=== PATIENT | female | born 1985 | race Caucasian/White ===

== ENCOUNTER 2021-05-02 10:22 | Outpatient (RCR) | payer BC, SELFPAY | END 2021-07-27 11:51 | disposition home or self-care (01) | LOC: ANHDMC 10:22 | PROVIDERS: PCP Internal Medicine; Visit Provider Internal Medicine | DX: E11.9 Type 2 diabetes mellitus without complications (principal); Z71.89 Other specified counseling | CPT/HCPCS: G0108 ==

== ENCOUNTER 2023-06-28 14:00 | Observation (INO) | payer OTHER, SELFPAY ==
[2023-06-28] VITALS (8 sets, daily range): BP systolic 109–124; BP diastolic 76–81; PULSE 75–83; TEMP 36.2
[2023-06-28] MEDS: LACTATED RINGERS 1,000 ML 125 ML IV CONT (14:44)
[2023-06-28 14:49] LABS: Basophils Percent Auto 0.2 % (0.2-1.2); Eosinophils Absolute Auto 0.1 K/mm3 (0-0.3); Eosinophils Percent Auto 0.4 % (0-4.4); Hemoglobin 9.9 g/dL (12.0-15.0); Immature Granulocyte Absolute 0.17 K/mm3 (0.00-0.031); Lymphocytes Absolute Auto 1.64 K/mm3 (0.9-3.2); Lymphocytes Percent Auto 9.2 % (18.3-44.2); Mean Corpuscular HGB Conc 34.1 g/dl (32-36); Mean Corpuscular Hemoglobin 31.5 pg (26-34); Mean Corpuscular Volume 92.4 fl (80-100); Mean Platelet Volume 10.4 fl (7.4-10.4); Monocytes Absolute Auto 1.1 K/mm3 (0.1-0.6); Monocytes Percent Auto 6.3 % (2.6-8.5); Neutrophils Absolute Auto 14.8 K/mm3 (1.3-6.7); Neutrophils Percent Auto 82.9 % (45.5-73.1); Platelet Count Result 291 k/mm3 (150-375); Red Blood Count 3.14 M/mm3 (4.2-5.4); Red Cell Distribution Width 12.5 % (11.5-14.5); White Blood Count 17.8 K/mm3 (4.5-10.0)
--- NOTE | 2023-06-28 14:58 | OBADM ---
This patient, Libia Uribe, admitted to the OB room [facility] for observation. Patient/family oriented to hospital policies and general routines including ID bracelet, bed and alarms, visiting hours, pain management, procedures, bathroom and other care routines, personal items, smoking policy, room service/diet, and visiting hours. Patient/Family are encouraged to report perceived risks to care and to ask questions if they do not understand what they are told or what they should do.
[2023-06-28 15:06] LABS: Alanine Aminotransferase 16 U/L (6-35); Albumin Level 3.4 g/dL (3.5-5.1); Alkaline Phosphatase 78 U/L (38-126); Anion Gap 3 mmol/L (8-16); Aspartate Amino Transferase 18 U/L (14-36); Bilirubin,Total 0.4 mg/dL (0.2-1.3); Blood Urea Nitrogen 7 mg/dL (7-17); Calcium 8.4 mg/dL (8.4-10.2); Carbon Dioxide 25 mmol/L (22-30); Chloride 108 mmol/L (98-107); Estimated CRCL calculation 123 ml/min; Estimated Glomerular Filt Rate > 60; Glucose 87 mg/dL (65-110); Sodium 136 mmol/L (137-145)
[2023-06-28] MEDS: ACETAMINOPHEN 500 MG TABLET 1000 MG PO (15:38)
[2023-06-28 15:42] LABS: Appearance Urine Cloudy (Clear); Bacteria Urine 3+ /hpf; Bilirubin Urine Negative (Negative); Blood Urine 2+ (Negative); Color Urine Yellow (Yellow); Glucose Urine UA Negative (Negative); Ketones Urine Negative (Negative); Leukocyte Esterase Ur 1+ LEU/UL (Negative); Nitrate Urine Negative (Negative); Protein Urine Trace mg/dL (Negative); RBC Urine 21-50 /hpf (0-2); Specific Grav Ur 1.015 (1.001-1.035); Squamous Epithelial Cell Urine Moderate /hpf (Few); Urobilinogen Urine 0.2 mg/dL (<2.0); pH Urine 6.5 (5.0-9.0)
[2023-06-28 15:44] LABS: Add Urine Microscopic? YES
[2023-06-28] MEDS: POTASSIUM CHLORIDE INJ 40 MEQ in SODIUM CHLORIDE 0.9% IV 500 ML 130 MEQ IVPB (15:50)
--- NOTE | 2023-06-28 16:18 | PC.NURSE ---
1610--Pt reports pain is less than before. Pt reports that she is able to relax a little bit. K-Pad applied to lower back area.
--- NOTE | 2023-06-28 16:46 | P.PNOB_ITS ---
OB - Triage/Final Diagnosis Visit Information Comments/Additional reasons for admission: I have assessed the risk for this patient, Libia Uribe, and determined that she would benefit from observation care. Evaluation Laboratory results: Laboratory Tests 06/28/23 14:31 WBC 17.8 H RBC 3.14 L Hgb 9.9 L Hct 29.0 L MCV 92.4 MCH 31.5 MCHC 34.1 RDW 12.5 Plt Count 291 MPV 10.4 Immature Gran % (Auto) 1.0 H Neut % (Auto) 82.9 H Lymph % (Auto) 9.2 L Bureau % (Auto) 6.3 Eos % (Auto) 0.4 Baso % (Auto) 0.2 Lymph # (Auto) 1.64 Bureau # (Auto) 1.1 H Eos # (Auto) 0.1 Baso # (Auto) 0.0 Abs Immat Gran (auto) 0.17 H Absolute Neuts (auto) 14.8 H Absolute Nucleated RBC 0.0 Nucleated RBC % 0.0 Sodium 136 L Potassium 3.0 L Chloride 108 H Carbon Dioxide 25 Anion Gap 3 L BUN 7 Creatinine 0.80 Estim Creat Clear Calc 123 Estimated GFR > 60 Glucose 87 Calcium 8.4 Total Bilirubin 0.4 AST 18 ALT 16 Alkaline Phosphatase 78 Total Protein 6.0 L Albumin 3.4 L Urine Color Yellow Urine Appearance Cloudy H Urine pH 6.5 Ur Specific [place] 1.015 Urine Protein Trace Urine Glucose (UA) Negative Urine Ketones Negative Ur Blood (Man) 2+ H Urine Nitrate Negative Urine Bilirubin Negative Urine Urobilinogen 0.2 Leukocyte Esterase Rfl 1+ H Urine RBC 21-50 H Urine WBC 11-20 H Ur Squamous Epith Cells Moderate Urine Bacteria 3+ H Urine Casts 3-5 Vital signs: Vital Signs - 24 hr 06/28/23 14:16 06/28/23 14:30 06/28/23 14:45 Pulse Rate 81 83 75 Blood Pressure 115/80 109/81 122/77 06/28/23 15:15 06/28/23 15:45 06/28/23 16:01 Pulse Rate 78 75 79 Blood Pressure 123/76 123/81 123/77 06/28/23 16:16 Pulse Rate 80 Blood Pressure 124/78 Final Diagnosis (1) Back pain affecting : Code(s): O99.891 - Other specified diseases and conditions complicating ; M54.9 - Dorsalgia, unspecified Status: Acute
--- NOTE | 2023-06-28 16:46 | PC.NURSE ---
1643--Reported labs to Dr. Smith. New orders received.
[2023-06-28] MEDS: POTASSIUM CHLORIDE 20 MEQ PACKET (FOR LIQUID) PO (17:05)
[2023-06-28] MEDS: ceFAZolin SODIUM 1 GM VIAL 2 GM IV PUSH (17:05)
--- NOTE | 2023-06-28 17:21 | PC.NURSE ---
1720--Pt educated on antibiotic and potassium. Pt reports no pain.
== END 2023-06-28 17:41 | disposition home or self-care (01) ==
LOC: ANHOBPP 14:10
PROVIDERS: Admitting Provider Obstetrics & Gynecology; Visit Provider Obstetrics & Gynecology
DX: O99.891 Other specified diseases and conditions complicating pregnancy (principal); M54.9 Dorsalgia, unspecified; Z3A.26 26 weeks gestation of pregnancy
CPT/HCPCS: 36415; 80053; 81001; 85025; 87086; 87088; 96374; 96375; A9270; G0378; G0379; J0690; J3480; J7040; J7120

== ENCOUNTER 2023-09-05 15:45 | Outpatient (CLI) | payer OTHER, SELFPAY ==
[2023-09-05 16:07] VITALS: BP 147/76; PULSE 73
[2023-09-05 16:10] VITALS: BP 147/76; PULSE 73
[2023-09-05 16:16] VITALS: BP 143/90; PULSE 76
[2023-09-05 16:21] LABS: Basophils Percent Auto 0.3 % (0.2-1.2); Eosinophils Absolute Auto 0.1 K/mm3 (0-0.3); Eosinophils Percent Auto 0.7 % (0-4.4); Hematocrit 30.8 % (37.0-47.0); Hemoglobin 10.2 g/dL (12.0-15.0); Immature Granulocyte Absolute 0.08 K/mm3 (0.00-0.031); Immature Granulocyte Percent A 0.6 % (0-0.5); Lymphocytes Absolute Auto 1.62 K/mm3 (0.9-3.2); Lymphocytes Percent Auto 11.9 % (18.3-44.2); Mean Corpuscular HGB Conc 33.1 g/dl (32-36); Mean Corpuscular Hemoglobin 31.1 pg (26-34); Mean Corpuscular Volume 93.9 fl (80-100); Mean Platelet Volume 10.8 fl (7.4-10.4); Monocytes Absolute Auto 0.9 K/mm3 (0.1-0.6); Monocytes Percent Auto 6.4 % (2.6-8.5); Neutrophils Absolute Auto 10.9 K/mm3 (1.3-6.7); Neutrophils Percent Auto 80.1 % (45.5-73.1); Platelet Count Result 284 k/mm3 (150-375); Red Blood Count 3.28 M/mm3 (4.2-5.4); Red Cell Distribution Width 13.9 % (11.5-14.5); White Blood Count 13.6 K/mm3 (4.5-10.0)
[2023-09-05 16:23] LABS: Creatinine Urine 28.8 mg/dL; Total Protein Urine Random 33 mg/dL; Ur Ttl Prot Creatinine Ratio 1.15 mg/mg (0-0.20)
[2023-09-05 16:31] VITALS: BP 142/85; PULSE 76
[2023-09-05 16:33] LABS: Alanine Aminotransferase 13 U/L (6-35); Albumin Level 3.3 g/dL (3.5-5.1); Alkaline Phosphatase 134 U/L (38-126); Anion Gap 5 mmol/L (8-16); Aspartate Amino Transferase 16 U/L (14-36); Bilirubin,Total 0.4 mg/dL (0.2-1.3); Blood Urea Nitrogen 4 mg/dL (7-17); Carbon Dioxide 25 mmol/L (22-30); Chloride 106 mmol/L (98-107); Estimated Glomerular Filt Rate > 60; Glucose 83 mg/dL (65-110); Potassium 2.5 mmol/L (3.4-5.0); Sodium 136 mmol/L (137-145); Uric Acid 3.5 mg/dL (2.5-7.5)
[2023-09-05 16:40] VITALS: BP 142/85; PULSE 76
[2023-09-05 16:46] VITALS: BP 147/88; PULSE 75
--- NOTE | 2023-09-05 16:50 | PC.NURSE ---
called Dr. Smith reported PIH lab result and BP. reactive tracing. also reported critical potassium level 2.5. Discharge order received with potassium RX and repeat testing on Sunday.
== END 2023-09-05 16:53 | disposition home or self-care (01) ==
LOC: ANHOBOP 15:50 → ANHOBPP 15:51
PROVIDERS: Visit Provider Obstetrics & Gynecology
DX: O13.9 Gestational [pregnancy-induced] hypertension without significant proteinuria, unspecified trimester (principal)
CPT/HCPCS: 36415; 59025; 80053; 82570; 84156; 84550; 85025; 99199

== ENCOUNTER 2023-09-07 14:30 | Outpatient (CLI) | payer OTHER, SELFPAY ==
--- NOTE | 2023-09-07 14:54 | PC.NURSE ---
pt presents to L&D with complaints of high blood pressure at home. pt states blood pressure at home was 164/114. pt denies any headache, dizziness, blurred vision, right upper quadrant pain or any other symptoms associated with pre-eclampsia. pt states she does have back pain that is constant that started today. pt states she was in here months ago for the same thing that ended up being what she thinks was the start of a kidney infection. pt denies any vaginal bleeding or leaking of fluid, pt has positive movement.
[2023-09-07 15:01] VITALS: BP 143/88; PULSE 79
[2023-09-07 15:20] LABS: Basophils Percent Auto 0.3 % (0.2-1.2); Eosinophils Absolute Auto 0.1 K/mm3 (0-0.3); Eosinophils Percent Auto 0.5 % (0-4.4); Hematocrit 29.5 % (37.0-47.0); Hemoglobin 9.6 g/dL (12.0-15.0); Immature Granulocyte Absolute 0.13 K/mm3 (0.00-0.031); Immature Granulocyte Percent A 0.8 % (0-0.5); Lymphocytes Absolute Auto 1.37 K/mm3 (0.9-3.2); Lymphocytes Percent Auto 8.9 % (18.3-44.2); Mean Corpuscular HGB Conc 32.5 g/dl (32-36); Mean Corpuscular Hemoglobin 30.7 pg (26-34); Mean Corpuscular Volume 94.2 fl (80-100); Mean Platelet Volume 10.7 fl (7.4-10.4); Monocytes Percent Auto 6.1 % (2.6-8.5); Neutrophils Absolute Auto 12.9 K/mm3 (1.3-6.7); Neutrophils Percent Auto 83.4 % (45.5-73.1); Platelet Count Result 275 k/mm3 (150-375); Red Blood Count 3.13 M/mm3 (4.2-5.4); Red Cell Distribution Width 14.2 % (11.5-14.5); White Blood Count 15.5 K/mm3 (4.5-10.0)
[2023-09-07 15:25] LABS: Appearance Urine Clear (Clear); Bacteria Urine 1+ /hpf; Bilirubin Urine Negative (Negative); Blood Urine 1+ (Negative); Color Urine Yellow (Yellow); Creatinine Urine 127.1 mg/dL; Glucose Urine UA Negative (Negative); Ketones Urine Negative (Negative); Leukocyte Esterase Ur Trace LEU/UL (NEGATIVE); Nitrate Urine Negative (Negative); Protein Urine 1+ mg/dL (Negative); RBC Urine 21-50 /hpf (0-2); Specific Grav Ur 1.014 (1.001-1.035); Squamous Epithelial Cell Urine Few /hpf (Few); Total Protein Urine Random 43 mg/dL; Ur Ttl Prot Creatinine Ratio 0.34 mg/mg (0-0.20); pH Urine 6.5 (5.0-9.0)
[2023-09-07 15:34] LABS: Alanine Aminotransferase 14 U/L (6-35); Albumin Level 3.1 g/dL (3.5-5.1); Alkaline Phosphatase 128 U/L (38-126); Anion Gap 3 mmol/L (8-16); Aspartate Amino Transferase 16 U/L (14-36); Bilirubin,Total 0.4 mg/dL (0.2-1.3); Blood Urea Nitrogen 4 mg/dL (7-17); Calcium 8.5 mg/dL (8.4-10.2); Carbon Dioxide 24 mmol/L (22-30); Chloride 110 mmol/L (98-107); Estimated Glomerular Filt Rate > 60; Glucose 94 mg/dL (65-110); Potassium 2.8 mmol/L (3.4-5.0); Sodium 137 mmol/L (137-145)
[2023-09-07 15:45] VITALS: BP 130/89; PULSE 72
[2023-09-07 15:53] LABS: Add Urine Microscopic? YES
--- NOTE | 2023-09-07 16:30 | PC.NURSE ---
Dr. Alaniz updated on pt status, instructed to send pt home with Keflex and instruction to continue taking P.O potassium
--- NOTE | 2023-09-07 16:46 | PM.OBTRLD ---
OB - Triage/Final Diagnosis Visit Information Date of evaluation: 09/07/23 Reason for evaluation: other (elevated blood pressure) Comments/Additional reasons for admission: I have assessed the risk for this patient, Libia Uribe, and determined that she would benefit from observation care. Evaluation Laboratory results: Laboratory Tests 09/07/23 15:04 WBC 15.5 H RBC 3.13 L Hgb 9.6 L Hct 29.5 L MCV 94.2 MCH 30.7 MCHC 32.5 RDW 14.2 Plt Count 275 MPV 10.7 H Immature Gran % (Auto) 0.8 H Neut % (Auto) 83.4 H Lymph % (Auto) 8.9 L [place] % (Auto) 6.1 Eos % (Auto) 0.5 Baso % (Auto) 0.3 Lymph # (Auto) 1.37 [place] # (Auto) 1.0 H Eos # (Auto) 0.1 Baso # (Auto) 0.0 Abs Immat Gran (auto) 0.13 H Absolute Neuts (auto) 12.9 H Absolute Nucleated RBC 0.0 Nucleated RBC % 0.0 Sodium 137 Potassium 2.8 L* Chloride 110 H Carbon Dioxide 24 Anion Gap 3 L BUN 4 L Creatinine 0.70 Estim Creat Clear Calc Not Reportable Estimated GFR > 60 Glucose 94 Uric Acid 4.0 Calcium 8.5 Total Bilirubin 0.4 AST 16 ALT 14 Alkaline Phosphatase 128 H Total Protein 6.0 L Albumin 3.1 L Urine Color Yellow Urine Appearance Clear Urine pH 6.5 Ur Specific [place] 1.014 Urine Protein 1+ H Urine Glucose (UA) Negative Urine Ketones Negative Ur Blood (Man) 1+ H Urine Nitrate Negative Urine Bilirubin Negative Urine Urobilinogen 1.0 Ur Leukocyte Esterase Trace H Urine RBC 21-50 H Urine WBC 11-20 H Ur Squamous Epith Cells Few Urine Bacteria 1+ H Urine Casts 3-5 U Random Total Protein 43 Urine Creatinine 127.1 Protein/Creat Ratio 2 0.34 H Vital signs: Vital Signs - 24 hr 09/07/23 15:01 09/07/23 15:45 Pulse Rate 79 72 Blood Pressure 143/88 H 130/89
== END 2023-09-07 17:00 | disposition home or self-care (01) ==
LOC: ANHOBOP 14:37 → ANHOBPP 14:39
PROVIDERS: Student in an Organized Health Care Education/Training Program; Visit Provider Obstetrics & Gynecology
DX: O13.9 Gestational [pregnancy-induced] hypertension without significant proteinuria, unspecified trimester (principal); Z3A.00 Weeks of gestation of pregnancy not specified
CPT/HCPCS: 36415; 59025; 80053; 81001; 82570; 84156; 84550; 85025; 87086; 87088; 99199

== ENCOUNTER 2023-09-08 13:00 | Outpatient (RCR) | payer OTHER, SELFPAY ==
[2023-08-25 13:28] VITALS: BP 123/75
--- NOTE | ~2023-09-08 | US_ITS ---
EXAMINATION: US OB limited w BPP DATE: 09/08/2023 15:32 INDICATION: PIH, AMA . TECHNIQUE: Real-time ultrasound of the pelvis was performed. COMPARISON: None. FINDINGS: There is a single living fetus in vertex presentation. The placenta is anterior and well distant fro m the cervix. The cervix is long and closed, measuring 5.7 cm. heart rate is 135 bpm. The amnio tic fluid index is 14.4 cm, which is normal (5th to 95th percentile is 7.7 to 24.9 cm). The following biometric data were obtained: Biparietal diameter (BPD): 8.75 cm; head circumference (HC): 32.13 cm; abdominal circumference (AC): 31.82 cm; femur length (FL): 6.84 cm. These measurements are concordant. Estimated weight is 2719 g +/- 407.86 g, which correlates with the 25.5 percentile when is used as estimated date of delivery. As single measurements, these parameters are each equal to the following estimated gestational ages w ith ranges of +/- 2 standard deviations: BPD: 35 weeks 2 days +/- 3 weeks 1 days. HC: 36 weeks 2 days +/- 2 weeks 5 days. AC: 35 weeks 5 days +/- 3 weeks 0 days. FL: 35 weeks 1 days +/- 3 weeks 0 days. estimated gestational age based solely on measurements from this exam is 35 weeks 4 days +/- 2 weeks 3 days. Biophysical profile performed by the technologist: breathing (30 sec sustained breathing in 30 minutes): 0 out of 2. movement (3 gross body movements in 30 minutes: 2 out of 2. tone (one episode of wdultkr-fcxvabqtk-xtnnmzi limb movement): 2 out of 2. Amniotic fluid pocket (2 cm): 2 out of 2. Total score: 6 out of 8. IMPRESSION: Single living fetus in vertex presentation. Biophysical profile 6 out of 8. breathing not confidently identified during this examination. Normal AL. Estimated gestational age by ultrasound 35 weeks and 4 days. ARMAND by ultrasound 10/09/2023. Estimated fe vandana weight 2719 g which corresponds to the 25.50 percentile. Reviewed, dictated and finalized at location K. TANALYST IMPRESSION: Single living fetus in vertex presentation. Biophysical profile 6 out of 8. breathing not confidently identified duri ng this examination. Normal AL. Estimated gestational age by ultrasound 35 weeks and 4 days. ARMAND by ultrasound 10/09/2023. Estimated weight 2719 g which corresponds to the 25.50 percenti le.
[2023-09-08 15:37] VITALS: BP 139/79; PULSE 71
== END 2023-11-23 23:59 | disposition home or self-care (01) ==
LOC: ANHOBOP 13:00
PROVIDERS: Visit Provider Obstetrics & Gynecology
DX: O24.419 Gestational diabetes mellitus in pregnancy, unspecified control (principal); O09.513 Supervision of elderly primigravida, third trimester; Z3A.34 34 weeks gestation of pregnancy; Z3A.36 36 weeks gestation of pregnancy
CPT/HCPCS: 59025; 76815; 76819

== ENCOUNTER 2023-09-10 05:00 | Inpatient (IN) | payer OTHER, SELFPAY ==
[2023-09-10] VITALS (188 sets, daily range): BP systolic 116–165; BP diastolic 64–107; PULSE 63–87; RESP 16; TEMP 36.2–37.2; O2SAT 95–100; BMI 38.4
--- NOTE | 2023-09-10 05:47 | LDADM ---
This patient, Libia Uribe, was admitted to Labor/Delivery/Recovery 107 on 09/10/23 at 05:00. Plans for labor, pain management and were discussed with patient. Patient/family oriented to hospital policies and general routines including ID bracelet, bed and alarms, visiting hours, pain management, procedures, bathroom and other care routines, personal items, smoking policy, room service/diet and guest tray routines, security routines, and visiting hours. Patient/Family are encouraged to report perceived risks to care and to ask questions if they do not understand what they are told or what they should do. See OBIX for further documentation.
[2023-09-10 05:53] LABS: Basophils Percent Auto 0.2 % (0.2-1.2); Eosinophils Absolute Auto 0.2 K/mm3 (0-0.3); Hematocrit 30.5 % (37.0-47.0); Hemoglobin 10.2 g/dL (12.0-15.0); Immature Granulocyte Percent A 0.7 % (0-0.5); Lymphocytes Absolute Auto 2.03 K/mm3 (0.9-3.2); Lymphocytes Percent Auto 13.5 % (18.3-44.2); Mean Corpuscular HGB Conc 33.4 g/dl (32-36); Mean Corpuscular Hemoglobin 31.6 pg (26-34); Mean Corpuscular Volume 94.4 fl (80-100); Monocytes Absolute Auto 1.2 K/mm3 (0.1-0.6); Monocytes Percent Auto 7.8 % (2.6-8.5); Neutrophils Absolute Auto 11.5 K/mm3 (1.3-6.7); Neutrophils Percent Auto 76.8 % (45.5-73.1); Platelet Count Result 287 k/mm3 (150-375); Red Blood Count 3.23 M/mm3 (4.2-5.4); Red Cell Distribution Width 13.7 % (11.5-14.5)
[2023-09-10 06:27] LABS: Alanine Aminotransferase 14 U/L (6-35); Albumin Level 3.1 g/dL (3.5-5.1); Alkaline Phosphatase 135 U/L (38-126); Anion Gap 5 mmol/L (8-16); Aspartate Amino Transferase 20 U/L (14-36); Bilirubin,Total 0.4 mg/dL (0.2-1.3); Blood Urea Nitrogen 5 mg/dL (7-17); Calcium 9.1 mg/dL (8.4-10.2); Carbon Dioxide 20 mmol/L (22-30); Chloride 110 mmol/L (98-107); Estimated CRCL calculation 142 ml/min; Estimated Glomerular Filt Rate > 60; Glucose 96 mg/dL (65-110); Potassium 3.5 mmol/L (3.4-5.0); Sodium 135 mmol/L (137-145)
[2023-09-10 06:46] LABS: HIV 1/2 Ab P24 Ag Result Negative (Negative)
[2023-09-10] MEDS: miSOPROStol 25 MCG TABLET XX (07:04)
[2023-09-10] MEDS: INSULIN GLARGINE (*BKC) 100 UNITS/ML 15 UNITS SUB-Q (08:10)
--- NOTE | 2023-09-10 09:01 | PM.IMHP ---
H&P: HPI History of Present Illness Date/Time: 09/10/23 09:01 Chief Complaint: pre-eclampsia Narrative: Libia is a 38yo @ 37.0wks who presents for medical induction of labor. She has been following closely with [facility] due to Class B DM requiring insulin and has been undergoing twice weekly ANT testing. At her visit last week, she was found to have mild range BPs. She was sent to L&D for PEC w/u and her P/C ratio was 1.15 and she continued having mild range BPs. She followed up over the weekend with reassuring testing and presents today for induction. She denies AGGARWAL, vision changes, CP, SOB, or RUQ pain. She reports good movement. Irregular ctx. No VB or LOF. Her is complicated by: - Pre-eclampsia, diagnosed @ 36+wks - AMA; nipt not done; anatomy normal w/ M - Diabetic since 2020; A1c 5.9, on Insulin (2x/wk ANT @ 32wks) - Genital HSV; needs daily ppx @ 36wks - Tobacco abuse - Obesity; pre-preg BMI 37 - Undesired future fertility; discussed 05/29/23 Review of Systems Constitutional: Constitutional: Denies chills, Denies fever(s) and Denies headache(s) Eyes: Eyes: Denies change in vision ENT: Denies headache(s) Cardiovascular: Cardiovascular: Denies chest pain and Denies dyspnea Respiratory: Respiratory: Denies dyspnea Genitourinary: Genitourinary: Denies abnormal vaginal bleeding and Denies vaginal discharge Neurologic: Denies headache(s) Psychiatric: Psychiatric: Denies anxiety and Denies depression [facility] Past Medical History Medical History Anxiety Bronchitis Cholecystectomy planned Depression Diabetes Narcolepsy Surgical History Surgical History History of colposcopy Lgsil SANJAY 1 2005 Hx of cholecystectomy [place] teeth extracted Family History Family History Father Diabetes mellitus Mother Diabetes mellitus Father Atrial fibrillation Grandparent Cerebrovascular accident Father Renal failure Mother Diverticul disease small and large intestine, no perforati or abscess Social History Social History (Reviewed 08/16/23 @ 13:28 by CHRISTIAN Nayak Smoking packs per day: 0.5 Smoking cigarettes per day: 10.0 Years smoked: 20 Smoking pack-years: 10.00 Smoking status: Current every day smoker Tobacco type: cigarettes Second hand tobacco smoke exposure: Yes Alcohol intake: never Substance use: never Lack of Transportation: No Lack of Food: Never True Current Housing: I Have Housing Concerned About Future Housing: No Difficulty Paying Gas/Electric Bills: No Difficulty Paying for Meds: No Currently Unemployed: No Education: Associate Degree Difficulty w/ Childcare or Family Care: No Living arrangements: with family 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/Education: occupation 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 Gender identity (if verbalized by the patient): Female Sexual Orientation (if Verbalized by the Patient): Straight or Heterosexual Spiritual care concerns: No Meds Home Medications and Allergies Home Medications Medication Instructions Recorded Confirmed Type ondansetron 4 mg disintegrating 4 mg PO Q6H PRN nausea and 03/05/23 09/07/23 Rx tablet vomiting #30 tabs blood sugar diagnostic (OneTouch #400 ea 06/08/23 08/29/23 Rx Verio test strips) glucagon 3 mg/actuation nasal mg intranasal 06/26/23 08/29/23 History spray (Baqsimi) valacyclovir 500 mg tablet 500 mg PO Q12H #60 tabs 08/29/23 09/07/23 Rx (Valtrex) potassium chloride 40 mEq/15 mL 40 meq (15 mL) PO TID #473 mL 09/05/23 09/07/23 Rx oral liquid cephalexin 500 mg capsule 500 mg PO TID 3 days #9 caps 09/07/23 Rx insulin glargine 100 unit/mL (3 15 unit subcut BID 09/07/23 09/07/23 History mL) subcutaneous pen insulin glargine 100 unit/mL (3 unit subcut 09/10/23 History mL) subcutan
[2023-09-10 09:44] LABS: Glucose Point of Care 98 mg/dl (65-105)
--- NOTE | 2023-09-10 10:50 | WPDHPUPDATE1 ---
History and Physical Update Update Date/Time: 09/10/23 10:50 History and Physical has been reviewed, including an updated exam of the patient. There are NO changes in the patient's condition. Risks, benefits, and alternatives have been discussed and questions answered. Patient agrees to proceed with procedure.
[2023-09-10] MEDS: LACTATED RINGERS 1,000 ML 125 ML IV CONT (11:13)
--- NOTE | 2023-09-10 11:15 | PM.OBPNLAB ---
Pain Control Date/time seen: 09/10/23 11:15 Pain control: tolerating well Pelvic Exam Dilation (cm): 1 (.5) Effacement (%): 0 station: -3 Amniotic membrane status: Intact Contractions Monitor mode: External Contraction frequency: 2 (-4) Status status: Category ll Comments: two variables noted to 90's x 1-2 min noted, otherwise reassuring Assessment and Plan Assessment: induction ongoing Comments: - s/p miso x1; will switch to pitocin augmentation due to deceleration x2 - will plan for AROM at next exam
[2023-09-10] MEDS: OXYTOCIN 30 UNITS/NS 500 ML 30 UNITS/500 ML BAG IV CONT (11:19)
[2023-09-10 14:07] LABS: Glucose Point of Care 110 mg/dl (65-105)
--- NOTE | 2023-09-10 14:57 | PM.OBPNLAB ---
Pain Control Date/time seen: 09/10/23 14:57 Pain control: tolerating well Pelvic Exam Dilation (cm): 2 (.5) Effacement (%): 50 station: -2 Amniotic membrane status: Ruptured (AROM, clear 1455) Contractions Monitor mode: Internal Contraction frequency: 2 (-3) Contraction pattern: Regular Contraction intensity: Strong/Firm Status status: Category l Assessment and Plan Pitocin rate (mU/min): 10 Assessment: induction ongoing Plan: continuous present management
[2023-09-10] MEDS: LACTATED RINGERS 1,000 ML 999 ML IV CONT ×2 (15:27→21:38)
--- NOTE | 2023-09-10 15:56 | WPDANESEPPF ---
Anes - Initial Pre Proc Eval Date/Time: 09/10/23 15:56 Surgeon: Sirisha Smith MD Pre Op Diagnosis: IOL Patient Data Age: 38 Gender: F Height: 1.61 m Weight: 100 kg Last Vital Signs Temp 37.2 C 09/10/23 15:48 Pulse 86 09/10/23 15:55 BP 127/81 09/10/23 15:55 Pulse Ox 98 09/10/23 15:52 Allergies Allergy/AdvReac Type Severity Reaction Status Date / Time codeine Allergy Severe unknown Verified 08/29/23 14:53 Home Medications Medication Instructions Recorded Confirmed Type ondansetron 4 mg disintegrating 4 mg PO Q6H PRN nausea and 03/05/23 09/07/23 Rx tablet vomiting #30 tabs blood sugar diagnostic (OneTouch #400 ea 06/08/23 08/29/23 Rx Verio test strips) glucagon 3 mg/actuation nasal mg intranasal 06/26/23 08/29/23 History spray (Baqsimi) valacyclovir 500 mg tablet 500 mg PO Q12H #60 tabs 08/29/23 09/07/23 Rx (Valtrex) potassium chloride 40 mEq/15 mL 40 meq (15 mL) PO TID #473 mL 09/05/23 09/07/23 Rx oral liquid cephalexin 500 mg capsule 500 mg PO TID 3 days #9 caps 09/07/23 Rx insulin glargine 100 unit/mL (3 15 unit subcut BID 09/07/23 09/07/23 History mL) subcutaneous pen insulin glargine 100 unit/mL (3 unit subcut 09/10/23 History mL) subcutaneous pen (Basaglar KwikPen U-100 Insulin) Laboratory Tests 09/10/23 09/10/23 09/10/23 05:40 05:42 09:41 WBC 15.0 H K/mm3 (4.5-10.0) RBC 3.23 L M/mm3 (4.2-5.4) Hgb 10.2 L g/dL (12.0-15.0) Hct 30.5 L % (37.0-47.0) MCV 94.4 fl (80-100) MCH 31.6 pg (26-34) MCHC 33.4 g/dl (32-36) RDW 13.7 % (11.5-14.5) Plt Count 287 k/mm3 (150-375) MPV 11.0 H fl (7.4-10.4) Immature Gran % (Auto) 0.7 H % (0-0.5) Neut % (Auto) 76.8 H % (45.5-73.1) Lymph % (Auto) 13.5 L % (18.3-44.2) [place] % (Auto) 7.8 % (2.6-8.5) Eos % (Auto) 1.0 % (0-4.4) Baso % (Auto) 0.2 % (0.2-1.2) Lymph # (Auto) 2.03 K/mm3 (0.9-3.2) Fisher # (Auto) 1.2 H K/mm3 (0.1-0.6) Eos # (Auto) 0.2 K/mm3 (0-0.3) Baso # (Auto) 0.0 K/mm3 (0.0-0.1) Abs Immat Gran (auto) 0.10 H K/mm3 (0.00-0.031) Absolute Neuts (auto) 11.5 H K/mm3 (1.3-6.7) Absolute Nucleated RBC 0.0 K/mm3 (0.0-0.012) Nucleated RBC % 0.0 % (0.0-0.2) Sodium 135 L mmol/L (137-145) Potassium 3.5 mmol/L (3.4-5.0) Chloride 110 H mmol/L (98-107) Carbon Dioxide 20 L mmol/L (22-30) Anion Gap 5 L mmol/L (8-16) BUN 5 L mg/dL (7-17) Creatinine 0.50 L mg/dL (0.7-1.0) Estim Creat Clear Calc 142 ml/min Estimated GFR > 60 (59 - ) Glucose 96 mg/dL (65-110) POC Capillary Glucose 98 mg/dl (65-105) Uric Acid 3.0 mg/dL (2.5-7.5) Calcium 9.1 mg/dL (8.4-10.2) Total Bilirubin 0.4 mg/dL (0.2-1.3) AST 20 U/L (14-36) ALT 14 U/L (6-35) Alkaline Phosphatase 135 H U/L (38-126) Total Protein 6.0 L g/dL (6.3-8.2) Albumin 3.1 L g/dL (3.5-5.1) RPR Pending HIV 1&2 Ab/P24 Ag 4thGn Negative (Negative) Blood Type AB Positive Antibody Screen Negative 09/10/23 14:03 WBC RBC Hgb Hct MCV MCH MCHC RDW Plt Count MPV Immature Gran % (Auto) Neut % (Auto) Lymph % (Auto) [place] % (Auto) Eos % (Auto) Baso % (Auto) Lymph # (Auto) [place] # (Auto) Eos # (Auto) Baso # (Auto) Abs Immat Gran (auto) Absolute Neuts (auto) Absolute Nucleated RBC Nucleated RBC % Sodium Potassium Chloride Carbon Dioxide Anion Gap BUN
[2023-09-10 18:12] LABS: Glucose Point of Care 72 mg/dl (65-105)
--- NOTE | 2023-09-10 20:33 | PM.OBPNLAB ---
Pain Control Date/time seen: 09/10/23 20:33 Pain control: epidural Pelvic Exam Dilation (cm): 4 (.5) Effacement (%): 70 station: -2 Amniotic membrane status: Ruptured (AROM, clear 1455) Contractions Monitor mode: Internal Contraction frequency: 2 (-3) Contraction pattern: Regular Contraction intensity: Strong/Firm Status status: Category ll Assessment and Plan Pitocin rate (mU/min): 6 Assessment: induction ongoing Plan: continuous present management Comments: - AROM'ed w/ IUPC and pitocin infusing; having adequate contractions
[2023-09-11] VITALS (44 sets, daily range): BP systolic 90–156; BP diastolic 49–95; PULSE 61–127; RESP 16; TEMP 36.8–37; O2SAT 90–100
[2023-09-11 00:35] LABS: Glucose Point of Care 82 mg/dl (65-105)
[2023-09-11] MEDS: PHENYLEPHRINE 1,000 MCG/10 ML SYRINGE 100 MCG IV PUSH (00:57)
--- NOTE | 2023-09-11 01:28 | PM.OBPRVD ---
OB - Vaginal Delivery Note Procedure Delivery date: 09/11/23 Events: Diabetes Mellitus and Preeclampsia w/o severe features Induction method: Per Misoprostol Protocol Delivery augmentation: Rupture of Membranes and Pitocin Delivery monitor: External FHT and Internal Uterine Route of delivery: Laceration Description: None Specimen: Yes (placenta) Quantitative Blood Loss (ml): 75 Anesthesia type: Epidural Disposition: Floor Complications: No immediate complications Baby Date of : 09/11/23 Time of : 01:09 Weeks of gestation at delivery: 37 (.1) Infant gender: Female Weight (pounds): 5 Weight (ounces): 4 presentation: vertex Placenta delivery description: Expressed Cord Vessel Description: 3 Vessels score one minute: 8 score five minutes: 9 Narrative: Libia was rapidly progressing but had significant pain and her epidural was dosed. She then had significant hypotension that had to be treated, heart tones were noted to have multiple variables. She was then examined and found to be complete. A test push was performed, and she pushed twice and could not stop and delivered the baby with the nurse. The umbilical cord was clamped and the pediatric team was readily available; the ground school instructor reports he was in the room by 2 minutes of life. I arrived at 5 minutes of life and she was in the warmer actively moving. The placenta was in situ. With pitocin running and gentle down chavez traction on the cord, the placenta delivered without issues. The uterus was firm with minimal bleeding. She was examined and no lacerations were identified. She remained firm with minimal bleeding. Sponge, lap, instrument, and needle counts were correct at the end. Mom and baby were left bonding in the birthing suite in a stable condition. [facility] Delivery Billing Delivery Delivery: Delivery Charge
[2023-09-11] MEDS: ACETAMINOPHEN 325 MG TABLET 650 MG PO (03:22)
[2023-09-11] MEDS: WITCH HAZEL 40 PADS 1 PAD TOPICAL (03:44)
[2023-09-11] MEDS: BENZOCAINE 20% AER SPR (*SP) 56 GM CAN 1 SPRAY TOPICAL (03:45)
[2023-09-11] MEDS: IBUPROFEN 600 MG TABLET PO ×2 (04:30→16:24)
[2023-09-11] MEDS: MULTIVIT/MIN/PREN/FOL AC/IRON TABLET 1 TAB PO (08:42)
[2023-09-11] MEDS: LABETALOL HCL 100 MG TABLET 200 MG PO ×2 (08:42→21:05)
--- NOTE | 2023-09-11 11:18 | PM.OBPNVD ---
OB - PN: Subj Subjective Date/time seen: 09/11/23 11:18 Narrative: PPD#1 Libia reports doing well today. 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 Her pain is controlled. She is tolerating regular diet, voiding, passing gas, and ambulating without issues. She is breast feeding. Her BPs have been in the mild range overnight; no overt AGGARWAL, vision changes, CP or SOB. OB - PN: Obj Data Labs 09/10/23 05:40 09/10/23 05:40 Labs: Laboratory Results - last 24 hr 09/10/23 09/10/23 09/11/23 14:03 18:09 00:31 POC Capillary Glucose 110 H 72 82 OB - PN A/P Assessment and Plan (1) Normal vaginal delivery of second : Code(s): O80 - Encounter for full-term uncomplicated delivery Status: Acute Plan day: 1 Plan: routine care Comments: - Labetalol 200mg PO BID started due to persistently elevated BPs Time Spent With Patient Time: Total time spent is greater than 50% in coordination of care (as documented) at patient's floor/unit and/or counseling patient: Review of Systems Constitutional: Constitutional: Denies chills, Denies fever(s) and Denies headache(s) Eyes: Eyes: Denies change in vision ENT: Denies dizziness and Denies headache(s) Cardiovascular: Cardiovascular: Denies chest pain, Denies palpitations and Denies dyspnea Respiratory: Respiratory: Denies cough and Denies dyspnea Gastrointestinal: Gastrointestinal: Denies nausea and Denies vomiting Neurologic: Denies dizziness and Denies headache(s) Endocrine: Endocrine: Denies palpitations Exam Const: General: cooperative, comfortable and no acute distress Orientation/consciousness: patient oriented x3 Resp: Effort & Inspection: normal respiratory effort Auscultation: clear to auscultation bilaterally Cardio: Rate: regular rate GI: Inspection: non-distended GI Palp: No abdominal tenderness and Yes Soft to palpation Auscultation: normal bowel sounds : Other: fundus firm Skin: General skin exam: normal color Neuro: General: patient oriented x3 Extrem: General: normal to inspection Psych: Appearance: grossly normal Affect: normal affect Attitude: cooperative
[2023-09-11 14:30] LABS: Rapid Plasma Reagin Non-Reactive (NonReactive)
--- NOTE | 2023-09-11 15:06 | WPDANLDPN2 ---
Anes-Prog Note L&D Date/Time: 09/11/23 15:06 Comfortable throughout: labor and delivery Neuraxial method: epidural Epidural/Spinal procedure site: clean & non-tender Neuro status: Neuro function grossly intact. Cardiovascular status: normal Respiratory status: normal Airway patency: baseline Mental status: baseline Post-Op hydration status: normal Vital Signs: Last Vital Signs Temp 98.2 F 09/11/23 11:55 Pulse 68 09/11/23 11:55 Resp 16 09/11/23 11:55 BP 139/82 09/11/23 11:55 Pulse Ox 100 09/11/23 11:55 O2 Del Method Room Air 09/11/23 04:20 Pain score (VAS): 0/10 I/O: Intake & Output 09/10/23 09/11/23 09/11/23 23:59 07:59 15:59 Intake Total 1000 240 Output Total 500 Balance 1000 -260 Post-procedural complaints: none Patient feedback: Patient satisfied with anesthetic care.
[2023-09-12] VITALS (7 sets, daily range): BP systolic 130–149; BP diastolic 77–85; PULSE 64–86; RESP 16–20; TEMP 36.2–36.8; O2SAT 98–100
[2023-09-12 04:19] LABS: Hematocrit 28.4 % (37.0-47.0); Hemoglobin 9.2 g/dL (12.0-15.0)
--- NOTE | 2023-09-12 07:22 | P.PNOB_ITS ---
OB - PN: Subj Subjective Date/time seen: 09/12/23 07:22 Narrative: PPD#1 Libia reports doing well today. 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 Her pain is controlled. She is tolerating regular diet, voiding, passing gas, and ambulating without issues. She is pumping and supplemental feeding. BPs better controlled; no PEC symptoms. OB - PN: Obj Data Labs 09/12/23 02:12 09/10/23 05:40 Labs: Laboratory Results - last 24 hr 09/10/23 09/12/23 05:40 02:12 Hgb 9.2 L Hct 28.4 L RPR Non-reactive OB - PN A/P Plan day: 1 Plan: routine care and discharge home (tomorrow) Comments: - BPs better controlled on labetalol 200mg BID; will continue to monitor today - Pelvic rest; take meds as prescribed - ER return precautions: fever, n/v/abd pain, bleeding, HTN Time Spent With Patient Time: Total time spent is greater than 50% in coordination of care (as documented) at patient's floor/unit and/or counseling patient: Review of Systems Constitutional: Constitutional: Denies chills, Denies fever(s) and Denies headache(s) Eyes: Eyes: Denies change in vision ENT: Denies dizziness and Denies headache(s) Cardiovascular: Cardiovascular: Denies chest pain, Denies palpitations and Denies dyspnea Respiratory: Respiratory: Denies cough and Denies dyspnea Gastrointestinal: Gastrointestinal: Denies nausea and Denies vomiting Neurologic: Denies dizziness and Denies headache(s) Endocrine: Endocrine: Denies palpitations Exam Const: General: cooperative, comfortable and no acute distress Orientati on/consciousness: patient oriented x3 Resp: Effort & Inspection: normal respiratory effort Auscultation: clear to auscultation bilaterally Cardio: Rate: regular rate GI: Inspection: non-distended GI Palp: No abdominal tenderness and Yes Soft to palpation Auscultation: normal bowel sounds : Other: fundus firm Skin: General skin exam: normal color Neuro: General: patient oriented x3 Extrem: General: normal to inspection Psych: Appearance: grossly normal Affect: normal affect 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
--- NOTE | 2023-09-12 08:00 | PC.NURSE ---
PT introductions made and plan of care discussed per post , pain management, breast pumping and bottle feeding, daily care activities. PT sole recipient of such instructions and no barriers to learning identified at this time. PT received such instructions per one to one discussion, mom baby care guide and demonstrations this shift. PT verbalized understanding of such care.
[2023-09-12] MEDS: TETANUS,DIPHTHERIA,AC PERTUSSIS ADULT (0.5 ML) BOOSTRIX IM (11:03)
[2023-09-12] MEDS: POLYSACCHARIDE IRON COMPLEX 150 MG CAPSULE PO ×2 (11:04→16:48)
[2023-09-12] MEDS: IBUPROFEN 600 MG TABLET PO ×2 (11:04→16:49)
[2023-09-12] MEDS: DOCUSATE SODIUM 100 MG CAPSULE PO ×2 (11:04→16:48)
[2023-09-12] MEDS: MULTIVIT/MIN/PREN/FOL AC/IRON TABLET 1 TAB PO (11:04)
[2023-09-12] MEDS: LABETALOL HCL 100 MG TABLET 200 MG PO ×2 (11:05→21:10)
--- NOTE | 2023-09-12 14:55 | WPDANLDPN2 ---
Anes-Prog Note L&D Date/Time: 09/12/23 14:55 Comfortable throughout: labor and delivery Neuraxial method: epidural Epidural/Spinal procedure site: clean & non-tender Neuro status: Neuro function grossly intact. Cardiovascular status: normal Respiratory status: normal Airway patency: baseline Mental status: baseline Post-Op hydration status: normal Vital Signs: Last Vital Signs Temp 36.2 C L 09/12/23 11:44 Pulse 71 09/12/23 11:44 Resp 18 09/12/23 11:44 BP 143/80 H 09/12/23 11:44 Pulse Ox 99 09/12/23 11:44 O2 Del Method Room Air 09/12/23 08:00 Pain score (VAS): 0 I/O: Intake & Output 09/11/23 09/12/23 09/12/23 23:59 07:59 15:59 Intake Total 1220 500 480 Output Total 450 1100 Balance 770 -600 480 Post-procedural complaints: none Patient feedback: Patient satisfied with anesthetic care.
[2023-09-13 02:30] VITALS: BP 131/78
--- NOTE | 2023-09-13 07:13 | PM.OBDSVD ---
DS: Admitting Diagnosis Discharge Date 09/13/23 Admitting Diagnosis Induction of labor Pre-eclampsia without severe features Class B DM AMA DS: Discharge Diagnosis Discharge Diagnosis (1) Normal vaginal delivery of second : Code(s): O80 - Encounter for full-term uncomplicated delivery Status: Acute (2) Modified White class B pregestational diabetes mellitus: Code(s): O24.319 - Unspecified pre-existing diabetes mellitus in , unspecified trimester Status: Acute (3) Pre-eclampsia: Qualifiers: Trimester: third trimester Qualified Code(s): O14.93 - Unspecified pre-eclampsia, third trimester Code(s): O14.90 - Unspecified pre-eclampsia, unspecified trimester Status: Acute OB - DS: Summary OB Procedures : NST, PIH Mgmt and Ultrasound OB Procedures Intrapartum: Spontaneous Vag Delivery OB Procedures: : None Peripartum Data Infant Delivery Method: Natural Vaginal Laceration Description: None complications: none 1: Gender: Female Disposition of : home Status at Discharge Functional status at discharge: independent ambulation Overall status at discharge: patient is back to baseline Time Spent with Patient Time attestation: Total time spent providing and/or coordinating discharge services: Time spent: Less than 30 minutes Exam Const: General: cooperative, comfortable, no acute distress and obese Orientation/consciousness: patient oriented x3 Resp: Effort & Inspection: normal respiratory effort Auscultation: clear to auscultation bilaterally Cardio: Rate: regular rate GI: Inspection: non-distended GI Palp: No abdominal tenderness and Yes Soft to palpation Auscultation: normal bowel sounds : Other: fundus firm Skin: General skin exam: normal color Neuro: General: patient oriented x3 Extrem: General: normal to inspection Psych: Appearance: grossly normal Affect: normal affect Attitude: cooperative DS: Data Data Completed and Pending Pending studies at discharge: Pending at discharge 09/11/23 01:19 Surgical [PTH] Routine Discharge Plan Discharge Attending physician on discharge: Sirisha Smith Discharging Clinician: Sirisha Smith Anticipated Discharge Date/Time: 09/13/23 10:00 Patient Disposition: Home, Self-Care Activity: may shower, may drive after 2 weeks and pelvic rest Diet: regular Patient Instructions: How to Stop Smoking (GEN), Vaginal Delivery (DC) Stand Alone Forms: General Discharge Information Follow-up/Referrals: Sirisha Smith MD [Physician] - 1 Week (for BP check, 4wks for routine PP visit) Discharge Medications: New docusate sodium 100 mg Capsule 100 mg PO BID PRN (Reason: Constipation) Qty: 120 0RF ibuprofen 600 mg Tablet 600 mg PO Q6H PRN (Reason: Cramping) Qty: 40 0RF labetalol 100 mg Tablet 200 mg PO Q12HR Qty: 120 1RF acetaminophen 500 mg tablet 1,000 mg PO TID Qty: 60 0RF Continued Baqsimi 3 mg/actuation spray,non-aerosol intranasal cephalexin 500 mg capsule 500 mg PO TID 3 Days Qty: 9 0RF Discontinued valacyclovir [Valtrex] 500 mg tablet 500 mg PO Q12H Qty: 60 1RF ondansetron 4 mg tablet,disintegrating 4 mg PO Q6H PRN (Reason: nausea and vomiting) Qty: 30 2RF insulin glargine [Basaglar KwikPen U-100 Insulin] 100 unit/mL (3 mL) insulin pen SUBCUT potassium chloride 40 mEq/15 mL liquid 40 meq PO TID Qty: 473 1RF insulin glargine 100 unit/mL (3 mL) insulin pen 15 unit subcut BID No Action (DME) OneTouch Verio test strips Strip See Rx Instructions .Route Qty: 400 0RF Rx Instructions: As directed Date of admission: 09/10/23 05:00 Primary Care Provider: PHYSICIAN,BENEFITS OFFICER Admitting Provider: Sirisha Smith Attending physician on admission: Sirisha Smith Condition: Stable
--- NOTE | 2023-09-13 07:50 | PC.NURSE ---
Patient to view the discharge video Mother & Baby Care, The First Two Weeks online. Patient was given the opportunity and encouraged to ask questions. Patient verbalized understanding of information shared and has been given the mother/baby guide for home reference.
[2023-09-13 08:20] VITALS: BP 140/78; PULSE 74; RESP 18; TEMP 37; O2SAT 98
[2023-09-13 09:17] VITALS: PULSE 74
[2023-09-13] MEDS: LABETALOL HCL 100 MG TABLET 200 MG PO (09:17)
[2023-09-13] MEDS: POLYSACCHARIDE IRON COMPLEX 150 MG CAPSULE PO (09:19)
[2023-09-13] MEDS: MULTIVIT/MIN/PREN/FOL AC/IRON TABLET 1 TAB PO (09:19)
[2023-09-13] MEDS: DOCUSATE SODIUM 100 MG CAPSULE PO (09:19)
--- NOTE | 2023-09-13 10:35 | PC.NURSE ---
0901 this RN called the OB office and spoke with Joel who double checked pt's lab regarding her non-immune rubella and confirmed that pt did need her MMR vaccine before discharge.
[2023-09-13] MEDS: MEASLES,MUMPS,RUBELLA VACCINE 0.5 ML VIAL SUB-Q (11:51)
[2023-09-13 12:10] VITALS: BP 147/82; PULSE 75; RESP 16; TEMP 36.5; O2SAT 99
[2023-09-15 10:21] VITALS: BP 146/87; PULSE 79; RESP 18; TEMP 37; O2SAT 100
== END 2023-09-13 12:23 | disposition home or self-care (01) | DRG 806 ==
LOC: ANHLDR 05:05 → ANHOB2 09-11 04:06
PROVIDERS: Admitting Provider Obstetrics & Gynecology; Visit Provider Obstetrics & Gynecology
DX: O24.12 Pre-existing type 2 diabetes mellitus, in childbirth (principal); O98.52 Other viral diseases complicating childbirth; Z37.0 Single live birth; Z3A.37 37 weeks gestation of pregnancy; Z79.4 Long term (current) use of insulin; B00.9 Herpesviral infection, unspecified; O99.214 Obesity complicating childbirth; O99.334 Smoking (tobacco) complicating childbirth; F17.210 Nicotine dependence, cigarettes, uncomplicated; O14.04 Mild to moderate pre-eclampsia, complicating childbirth; O26.53 Maternal hypotension syndrome, third trimester; O76 Abnormality in fetal heart rate and rhythm complicating labor and delivery
CPT/HCPCS: 36415; 80053; 82948; 84550; 85014; 85018; 85025; 86592; 86703; 86850; 86900; 86901; 88307; 90710; 90715; A9270; G0432; J1815; J2371; J2590; J2795; J7120

== ENCOUNTER 2024-01-26 08:30 | Emergency (ER) | payer OTHER, SELFPAY ==
[2024-01-26 08:41] VITALS: BP 155/98; PULSE 72; RESP 18; TEMP 36.4; O2SAT 98
--- NOTE | 2024-01-26 08:45 | ED.GENADULT ---
HPI - General Adult General Chief complaint: Urogenital-Female Stated complaint: back pain Source: patient, RN notes reviewed and old records reviewed Mode of arrival: ambulatory Limitations: no limitations History of Present Illness HPI narrative: 38 year female presents to [facility] with complaints left flank pain that radiates into lower abdomen and nausea this started yesterday. Patient states has history of stones and thinks she may have a stone. Patient has not taken anything for symptoms. Patient denies vomiting. Patient denies urinary symptoms. Related Data Home Medications Medication Instructions Recorded Confirmed albuterol sulfate 90 mcg/actuation 2 puff inhalation QID PRN 10/17/23 10/17/23 aerosol inhaler Shortness Of Breath docusate sodium 100 mg capsule 100 mg PO PRN PRN Constipation 10/17/23 10/17/23 labetalol 100 mg tablet 200 mg PO DAILY 10/17/23 10/17/23 metformin 500 mg tablet,extended 500 mg PO BID 10/17/23 10/17/23 release 24 hr mometasone-formoterol HFA 100 2 puff inhalation Q12H PRN 10/17/23 10/17/23 mcg-5 mcg/actuation aerosol Shortness Of Breath inhaler (Dulera) valacyclovir 500 mg tablet 500 mg PO Q12H PRN FOR OUTBREAK 10/17/23 10/17/23 Allergies Allergy/AdvReac Type Severity Reaction Status Date / Time codeine Allergy Severe CHEST PAINS Verified 10/17/23 08:24 Review of Systems Constitutional: Constitutional: Reports no additional constitutional complaints, Denies body ache(s), Denies chills, Denies fatigue, Denies fever(s) and Denies headache(s) Eyes: Eyes: Reports no additional eye complaints and Denies blurry vision ENT: Reports system reviewed and no additional complaints, except as documented, Denies vertigo, Denies dizziness, Denies ear discharge, Denies otalgia, Denies facial pain, Denies headache(s), Denies nasal congestion, Denies nasal discharge, Denies sinus pain, Denies sinus pressure and Denies sore throat Cardiovascular: Cardiovascular: Reports no additional cardiovascular complaints, Denies chest pain, Denies chest pain at rest, Denies rapid heart rate and Denies dyspnea Respiratory: Respiratory: Reports no additional respiratory complaints, Denies chest congestion, Denies cough, Denies pain on inspiration, Denies pain with cough and Denies dyspnea Gastrointestinal: Gastrointestinal: Reports abdominal pain, Denies diarrhea, Reports nausea and Denies vomiting Genitourinary: Genitourinary: Reports as per HPI, Denies hematuria, Denies nocturia, Denies dysuria, Denies pelvic pain, Reports flank pain and Denies urinary urgency Integumentary/Breasts: Skin/Breast: Denies rash Neurologic: Reports system reviewed and no additional complaints, except as documented, Denies vertigo, Denies dizziness and Denies headache(s) Endocrine: Endocrine: Denies fatigue [facility] Past Medical History Medical History Anxiety Bronchitis Cholecystectomy planned Depression Diabetes Narcolepsy Surgical History Surgical History History of colposcopy Lgsil SANJAY 1 2005 Hx of cholecystectomy [place] teeth extracted Family History Family History Father Diabetes mellitus Mother Diabetes mellitus Father Atrial fibrillation Grandparent Cerebrovascular accident Father Renal failure Mother Diverticul disease small and large intestine, no perforati or abscess Social History Social History Smoking packs per day: 1 Smoking cigarettes per day: 20.0 Years smoked: 20 Smoking pack-years: 20.00 Smoking status: Current every day smoker Tobacco type: cigarettes Second hand tobacco smoke exposure: Yes Alcohol intake: never Substance use: never Do You Feel Safe in your Home?: Yes Lack of Transportation: No Lack of Food: Never True Current Hous
--- NOTE | 2024-01-26 08:53 | PC.NURSE ---
0848 provider in to see pt. pt states I'm leaving Im in pain and going to ER. Provider heard offering pt a urine test and a call to ED, pt refusing.
== END 2024-01-26 08:55 | disposition left against medical advice (07) ==
PROVIDERS: Emergency Provider Registered Nurse; PCP Internal Medicine
DX: R10.9 Unspecified abdominal pain (principal); F17.210 Nicotine dependence, cigarettes, uncomplicated; E11.9 Type 2 diabetes mellitus without complications; Z79.84 Long term (current) use of oral hypoglycemic drugs
CPT/HCPCS: 99211; G0463

== ENCOUNTER 2024-01-29 16:15 | Emergency (ER) | payer OTHER, SELFPAY | END 2024-01-29 16:25 | disposition left against medical advice (07) | LOC: ANHED 16:21 | PROVIDERS: PCP Internal Medicine | DX: Z53.21 Procedure and treatment not carried out due to patient leaving prior to being seen by health care provider (principal) | CPT/HCPCS: 99199 ==

== ENCOUNTER 2024-04-22 14:22 | Outpatient (CLI) | payer OTHER, SELFPAY ==
[2024-04-22 15:30] LABS: Beta HCG Quantitative < 2.39 mIU/ML
== END 2024-04-22 14:23 | disposition home or self-care (01) ==
LOC: ANHLAB 14:24
PROVIDERS: PCP Internal Medicine; Visit Provider Obstetrics & Gynecology
DX: Z30.9 Encounter for contraceptive management, unspecified (principal)
CPT/HCPCS: 36415; 84702